=== PATIENT | male | born 1970 | race Two or more races ===

== ENCOUNTER 2021-03-20 15:37 | Emergency (ER) | payer SELFPAY ==
[~2021-03-20] VITALS: Ht 170.2 cm; Wt 83.9 kg
--- NOTE | 2021-03-20 15:42 | NUR ---
SEEN AND EXAMINED BY ELLA CRUZ
[2021-03-20 15:44] VITALS: BP 155/89
--- NOTE | 2021-03-20 16:03 | NUR ---
Patient discharged in custody in stable condition. Written and verbal after care instructions given. Patient verbalizes understanding of instruction.
--- NOTE | 2021-03-20 16:03 | NUR ---
Eben funez in [facility] - 03/20/21 at 1603 by GREGORY Patient discharged to home in stable condition. Written and verbal after care instructions given. Patient verbalizes understanding of instruction.
== END 2021-03-20 16:04 ==
LOC: ER 15:43
DX: Z02.89 Encounter for other administrative examinations (principal); F10.129 Alcohol abuse with intoxication, unspecified; F32.9 Major depressive disorder, single episode, unspecified; F41.9 Anxiety disorder, unspecified; F20.9 Schizophrenia, unspecified; Y90.9 Presence of alcohol in blood, level not specified